=== PATIENT | female | born 1995 | race Caucasian/White ===

== ENCOUNTER 2017-09-10 16:30 | Emergency (ER) | payer BC ==
--- NOTE | 2017-09-10 17:34 | EDPHY ---
H & P Stated Complaint: Sent by , R/O peritonsil abcess. Sore throat since Wednesday. HPI/ROS: CHIEF COMPLAINT: Sore throat HISTORY OF PRESENT ILLNESS: This patient is a healthy 22 year old female arriving with her significant other complaining of sore throat and body aches onset Wednesday evening. Wednesday, 09/07, she visited [facility] clinic on the [employer] [facility] where she had a negative strep test. She was placed on Keflex at that time. She has been taking her antibiotics, but her throat has not improved. Over the week, she has developed more body aches, headaches, chills, and diaphoresis. She endorses left -sided otalgia. Today, she visited urgent care and had another negative strep test. Flu swab is pending. Her temperature was over 39 degrees C at urgent care and she was given Tylenol 975mg at 16:00. She has been able to eat and drink despite pain. She has had her flu shot this year. Her last menstrual period 2.5 weeks ago and normal. She denies abdominal pain, vomiting, diarrhea, urinary complaints, or other associated symptoms. REVIEW OF SYSTEMS: A ten point review of systems was performed and is negative with the exception of the items mentioned in the HPI. Past medical history: 1. Taking control. 2. History of multiple strep infections Past surgical history: Denies. Family history: Noncontributory. 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 Significant other at bedside. General Appearance: Alert. Vital signs reviewed. Heart rate 115. Eyes: Pupils equal and round, no conjunctival injection, no discharge. Anicteric. ENT, Mouth: Pharyngeal erythema. Bilateral tonsillar hypertrophy worse on left than right, erythematous with exudates. No palatal swelling. Slight uvular deviation towards the left. No trismus. Neck: Anterior lymphadenopathy, supple. Respiratory: Lungs are clear to auscultation; no wheezes, rales, or rhonchi. No stridor. Cardiovascular: Regular tachycardia; no murmur, rub, or gallop. Gastrointestinal: Abdomen is soft and nontender, no masses or organomegaly, bowel sounds normal. Skin: Warm and dry, no rashes on exposed skin, normal color. Back: Nontender to palpation over the thoracolumbar spine. No CVAT. Extremities: No lower extremity edema, no calf tenderness or swelling. Neurological: Alert and oriented. Moving all four extremities easily and equally. Psychiatric: Normal affect. - Personal History LMP (Females 10-55): 15-21 Days Ago Current Tetanus Diphtheria and Acellular Pertussis (TDAP): Yes - Medical/Surgical History Hx Asthma: No Hx Chronic Respiratory Disease: No Hx Diabetes: No Hx Cardiac Disease: No Hx Renal Disease: No Hx Cirrhosis: No Hx Alcoholism: No Hx HIV/AIDS: No Hx Splenectomy or Spleen Trauma: No Other PMH: Denies - Social History Smoking Status: Never smoked Constitutional: Initial Vital Signs Temperature (C) 37.4 C 09/10/17 16:31 Heart Rate 115 H 09/10/17 16:31 Respiratory Rate 18 09/10/17 16:31 Blood Pressure 118/72 09/10/17 16:31 O2 Sat (%) 96 09/10/17 16:31 O2 Delivery Mode Room Air Allergies/Adverse Reactions: No Known Allergies Allergy (Unverified 09/10/17 16:35) Home Medications: Medication Instructions Recorded Clindamycin HCl [Clindamycin] 300 mg PO TID #21 cap 09/10/17 Hydrocodone/APAP 5/325 [Wellington 1 - 2 tab PO Q4 PRN #10 tab 09/10/17 5/325 (RX)] Medical Decision Making ED Course/Re-evaluation: 22 year old female presents with six day history of sore throat, fever, and body aches. Physical exam reveals bilateral tonsil hypertrophy with erythema and exudates. No trismus, no strong evidence of peritonsillar abscess at this time. 19:12 Reassessed patient. [place] screen negative. Spoke with urgent care. Flu swab negative. Two prior strep tests have been negative. She received one liter NS IV and 10 mg decadron IV in the ED, also toradol 15 mg IV. HR in the 80s after these treatments. She is swallowing and taking PO. Plan to discharge home in good condition with prescriptions for Wellington and Clindamycin for symptom relief. Follow up and return precautions discussed. The patient is comfortable with this plan. Differential Diagnosis: DDX includes but is not limited to peritonsillar abscess, strep throat, tonsillitis, retropharyngeal abscess, epiglottitis, mono. - Data Points Medications Given: Discontinued Medications Dexamethasone (Decadron Injection) 10 mg IVP EDNOW ONE Stop: 09/10/17 17:44 Last Admin: 09/10/17 18:11 Dose: 10 mg Sodium Chloride (Ns) 1,000 mls @ 0 mls/hr IV ONCE ONE; Wide Open PRN Reason: Protocol Stop: 09/10/17 17:43 Last Admin: 09/10/17 18:07 Dose: 1,000 mls Ketorolac Tromethamine (Toradol) 15 mg IVP EDNOW ONE Stop: 09/10/17 17:44 Last Admin: 09/10/17 18:11 Dose: 15 mg Departure - Departure Disposition: Home, Routine, Self-Care Clinical Impression: Tonsillitis Condition: Good Instructions: Tonsillitis (ED) Additional Instructions: 1. Take Wellington as prescribed as needed for severe pain. You may also take ibuprofen or Tylenol as directed below. Do not take Tylenol while you are taking Wellington as this medication already contains acetaminophen. 2. Take Clindamycin as prescribed. 3. Be sure you are fever free for 24 hours before you return to class. Check back in at [facility] Wednesday if you are still feeling poorly. We have also referred you to an Ear, Nose, and Throat physician. You may wish to follow up with ENT if you have recurrent strep infections or tonsillitis. 4. Return to the emergency department for difficulty speaking or breathing, uncontrollable fever, inability to swallow or eat and drink adequately, or other worsening of condition. Adult Pain & Fever Control: We recommend Acetaminophen (Tylenol) and Ibuprofen (Motrin,Advil) for pain and fever control. When fever is high or pain severe, both drugs can be used at the same time, but at different intervals. Please note the time differences. Your dose is: Acetaminophen 650mg every 4 to 6 hours Ibuprofen 600mg every 6-8 hours with food Note: do not take Acetaminophen with Hydrocodone (Vicodin, Lortab) or Oxycodone (Percocet). These medications also contain Acetaminophen. No more than 3000mg of Acetaminophen should be taken in 24 hours (for an adult). Referrals: [facility] [Other] - As per Instructions Galen Ogden MD [Medical Doctor] - As per Instructions [facility],. [Clinic] - As per Instructions Stand Alone Forms: Narcotic Guidelines Prescriptions: Clindamycin HCl [Clindamycin] 300 mg PO TID #21 cap Hydrocodone/APAP 5/325 [Wellington 5/325 (RX)] 1 - 2 tab PO Q4 PRN #10 tab PRN Reason: pain Report Scribed for: Kassi Dove Report Scribed by: Flaca Salmon Date of Report: 09/10/17 Time of Report: 19:37 Physician Review and Approval Statement: 09/10/17 17:34 Portions of this note were transcribed by the medical aide. I, Dr. Kassi Dove, personally performed the history, physical exam, and medical decision- making; and confirmed the accuracy of the information in the transcribed note.
[2017-09-10] MEDS ORDERED: NS 1,000 ML IV ONE (17:42)
[2017-09-10] MEDS ORDERED: KETOROLAC 30 MG/1 ML SDV IVP ONE (17:43)
[2017-09-10] MEDS ORDERED: DEXAMETHASONE 10 MG/ML VIAL IVP ONE (17:43)
[2017-09-10 19:08] VITALS: RESP 16
[2017-09-10 19:46] VITALS: BP 120/73; PULSE 83; TEMP 99; O2SAT 97
== END 2017-09-10 19:44 | disposition home or self-care (01) ==
DX: J03.90 Acute tonsillitis, unspecified (principal); E86.9 Volume depletion, unspecified
CPT/HCPCS: 96374; J1100; J1885